=== PATIENT | female | born 1995 | race Asian ===

== ENCOUNTER 2017-12-29 22:19 | Emergency (ER) | payer OTHER, MEDICAID ==
[~2017-12-29] VITALS: Ht 162.6 cm; Wt 77.0 kg
[2017-12-30] MEDS ORDERED: IBUPROFEN 600MG TABLET PO STA (00:40)
[2017-12-30 02:28] VITALS: BP 124/82
== END 2017-12-30 04:45 | disposition home or self-care (01) ==
LOC: ER 22:49
DX: M54.89 Other dorsalgia (principal); S90.822A Blister (nonthermal), left foot, initial encounter; S90.821A Blister (nonthermal), right foot, initial encounter; Y04.8XXA Assault by other bodily force, initial encounter; Y93.89 Activity, other specified; Y92.480 Sidewalk as the place of occurrence of the external cause; R03.0 Elevated blood-pressure reading, without diagnosis of hypertension; F12.90 Cannabis use, unspecified, uncomplicated
CPT/HCPCS: 72100; 99284

== ENCOUNTER 2023-03-03 01:03 | Emergency (ER) | payer OTHER ==
[~2023-03-03] VITALS: Ht 165.1 cm; Wt 100.0 kg
[2023-03-03 01:12] VITALS: BP 128/87; PULSE 87; RESP 16; TEMP 98; O2SAT 98
[2023-03-03] MEDS ORDERED: DOXY150T5 MT (03:41)
[2023-03-03] MEDS ORDERED: CEFTRIAXONE SODIUM 1 G/VIAL IM ONE (03:45)
[2023-03-03] MEDS ORDERED: ARIP20TA2 MT (03:49)
[2023-03-03 05:04] LABS: CLARITY URINE TURBID (CLEAR); COLOR URINE DARK YELLOW (YELLOW); GLUCOSE URINE NEGATIVE (NEGATIVE); KETONES URINE TRACE (NEGATIVE); LEUKOCYTE ESTERASE URINE 3+ (NEGATIVE); NITRITE URINE NEGATIVE (NEGATIVE); OCCULT BLOOD URINE 2+ (NEGATIVE); PH URINE 5.5 (4.5-8.0); PROTEIN URINE 2+ (NEGATIVE); SPECIFIC GRAVITY URINE 1.024 (1.005-1.030)
[2023-03-03 07:14] LABS: SQUAMOUS EPITHELIAL CELL URINE 3+ /lpf (RARE/1+)
[2023-03-03 07:15] LABS: WBC URINE TNTC /hpf (0-2)
[2023-03-03 07:16] LABS: BACTERIA URINE 2+; RBC URINE 0-2 /hpf (0-2)
[2023-03-06 04:08] LABS: CHLAMYDIA TRACHOMATIS NAA Negative (Negative); NEISSERIA GONORRHOEAE NAA Negative (Negative)
== END 2023-03-03 04:47 | disposition home or self-care (01) ==
LOC: ER 01:03
DX: Z76.0 Encounter for issue of repeat prescription (principal); J02.9 Acute pharyngitis, unspecified; A64 Unspecified sexually transmitted disease; F41.9 Anxiety disorder, unspecified; F31.9 Bipolar disorder, unspecified; F12.10 Cannabis abuse, uncomplicated
CPT/HCPCS: 87491; 87591; 81003; 87430; 87086; 87186; 87070; 87077; 96372; 99283; J0696; Z7610

== ENCOUNTER 2023-03-03 06:54 | Emergency (ER) | payer OTHER ==
[~2023-03-03] VITALS: Ht 170.2 cm; Wt 82.0 kg
[~2023-03-03 06:54] MED LIST: ARIP20TA2 MT; DOXY150T5 MT
[2023-03-03 07:00] VITALS: BP 128/71; PULSE 108; RESP 18; TEMP 98.7; O2SAT 98
== END 2023-03-03 09:27 | disposition home or self-care (01) ==
LOC: ER 06:54
DX: K08.89 Other specified disorders of teeth and supporting structures (principal); J02.9 Acute pharyngitis, unspecified; R05.9 Cough, unspecified; F41.9 Anxiety disorder, unspecified; F31.9 Bipolar disorder, unspecified; F12.10 Cannabis abuse, uncomplicated
CPT/HCPCS: 99281